=== PATIENT | male | born 1965 | race Caucasian/White ===

== ENCOUNTER 2019-02-17 02:33 | Inpatient (IN) | payer MEDICAID, SELFPAY ==
[2019-02-17] VITALS (9 sets, daily range): BP systolic 124–142; BP diastolic 79–93; PULSE 85–103; RESP 12–18; TEMP 36.4–36.9; O2SAT 94–97; BMI 23.0
[2019-02-17] MEDS: EPINEPHrine HCL INJ 1 MG/ML AMPUL 0.3 MG SUB-Q (03:06)
--- NOTE | 2019-02-17 03:33 | PM.IMHP ---
H&P: HPI History of Present Illness Chief complaint: Direct admit for angioedema Narrative: This is a 54 year old male with known history of asthma and hypertension who presented to our hospital as a direct admission from [facility] secondary to an episode of angioedema tonight. The patient mentions that the last time he had any significant rash was last year when at affected his right upper extremity and started for no apparent reason. At that time nobody could tell him the reason why he had the rash. Approximately 3 years ago he had another episode of a skin eruption when he got stung by a bee and involved his whole back. The patient has been on lisinopril for the past 3-4 years and today he took his usual dose of lisinopril yesterday morning. Tonight around 7:45 p.m. he started to experience swelling of his right upper lip. The swelling worsened to include the right side of his face and his lower lip. The patient also experienced a red itchy raise rash on his abdomen and decided to go to the ER for evaluation. At [facility] the patient was diagnosed with angioedema and was treated with subcu epinephrine 0.3 mg, Zantac 50 mg IV, Solu-Medrol 125 mg IV, and Benadryl 50 mg IV around 10:00 p.m. this evening. Patient's swelling improved slightly but then started to involve the left side of his lip and face. ER provider called our hospital for direct admission. On my encounter with the patient tonight he denies any other significant symptoms. He denies any bug bites or stings of any sort from any type of insects recently. He denies starting any new medications. He does however mention that he took aspirin yesterday for headache. The patient denies any family history of angioedema. He has not had any URI symptoms. Tonight he also denies any syncope, nausea or vomiting, shortness of breath, stridor, tongue swelling, difficulty swallowing, wheezing, chest pain, headache, dizziness, abdominal pain, dysuria, hematuria, or focal neurological symptoms. He has never had involvement of his face before like he has tonight. The patient believes that his lip and facial swelling may have worsened since he was at [facility]. Review of Systems Review of Systems: All systems reviewed & are unremarkable except as noted in HPI and below PMFSH Past Medical History Medical History Asthma (Acute) Hypertension (Acute) Family History Family History Father Anemia Mother Septic shock Hypertension Social History Social History Smoking status: Former smoker Tobacco type: cigarettes Alcohol intake: current Drinks per week: 14 Substance use: never Gender identity (if verbalized by the patient): Male Spiritual care concerns: Yes Agree to blood products: Yes Comments Past surgical history is unremarkable Meds Home Medications and Allergies Allergies Allergy/AdvReac Type Severity Reaction Status Date / Time lisinopril AdvReac Anaphylaxis Verified 02/17/19 03:06 Exam Const: General: cooperative, healthy appearing, no acute distress, alert and awake Nutritional Appearance: well nourished Orientation/consciousness: oriented x3 HENMT: General nose exam: external nose normal Face and sinus: edema (Significant facial edema is noted on the right side, and left-sided) and other (Angioedema++) Mouth: Yes tongue normal, Yes moist mucous membranes and Yes other (Significant perioral edema is noted including the upper and lower lip) Eyes: Pupils: PERRL EOM: EOM intact bilaterally Neck: Neck: supple and no JVD Thyroid: thyroid normal Lymphatic: lymphadenopathy not noted Resp: Effort & Inspection: normal respiratory effort Auscultation: wheezes (Mild bibasilar wheeze++) Cardio: Rate: tachycardic Rhythm: regular rhythm Heart sounds: no murmurs
[2019-02-17] MEDS: ALBUTEROL SULFATE NEB 2.5 MG/0.5 ML INH 5 MG INHALATION (03:58)
[2019-02-17 04:35] LABS: Basophils Percent Auto 0.3 % (0.2-1.2); Eosinophils Absolute Auto 0.1 K/mm3 (0-0.3); Hematocrit 47.7 % (42.0-52.0); Hemoglobin 16.6 g/dL (14.0-18.0); Immature Granulocyte Absolute 0.05 K/mm3 (0.00-0.031); Immature Granulocyte Percent A 0.4 % (0-0.5); Lymphocytes Absolute Auto 0.83 K/mm3 (0.9-3.2); Lymphocytes Percent Auto 6.3 % (18.3-44.2); Mean Corpuscular HGB Conc 34.8 g/dl (32-36); Mean Corpuscular Hemoglobin 32.5 pg (26-34); Mean Corpuscular Volume 93.5 fl (80-100); Mean Platelet Volume 10.3 fl (7.4-10.4); Monocytes Absolute Auto 0.1 K/mm3 (0.1-0.6); Monocytes Percent Auto 0.5 % (2.6-8.5); Neutrophils Percent Auto 91.5 % (45.5-73.1); Platelet Count Result 289 k/mm3 (150-375); White Blood Count 13.1 K/mm3 (4.5-10.0)
[2019-02-17 04:47] LABS: Alanine Aminotransferase 20 U/L (4-50); Albumin Level 4.2 g/dL (3.5-5.1); Alkaline Phosphatase 80 U/L (38-126); Aspartate Amino Transferase 25 U/L (17-59); Bilirubin,Total 0.3 mg/dL (0.2-1.3); Blood Urea Nitrogen 14 mg/dL (9-20); Calcium 9.3 mg/dL (8.4-10.2); Carbon Dioxide 23 mmol/L (22-30); Chloride 102 mmol/L (98-107); Estimated CRCL calculation 103 ml/min; Estimated Glomerular Filt Rate > 60; Glucose 163 mg/dL (75-110); Sodium 138 mmol/L (137-145)
[2019-02-17 04:48] LABS: Magnesium 2.2 mg/dL (1.6-2.3)
[2019-02-17 05:15] LABS: Erythrocyte Sedimentation Rate 11 mm/hr (0-120)
[2019-02-17] MEDS: SODIUM CHLORIDE 0.9% IV 1,000 ML 125 ML IV CONT ×2 (06:18→13:38)
[2019-02-17 09:00] LABS: Add Urine Microscopic? YES; Appearance Urine Clear (Clear); Bilirubin Urine Negative (Negative); Blood Urine Negative (Negative); Color Urine Yellow (Yellow); Glucose Urine UA Negative (Negative); Ketones Urine 1+ mg/dL (Negative); Leukocyte Esterase Ur Negative LEU/UL (Negative); Mucus Urine Rare /lpf; Nitrate Urine Negative (Negative); Protein Urine Negative (Negative); RBC Urine 0-2 /hpf (0-2); Specific Grav Ur 1.019 (1.001-1.035); Urobilinogen Urine Negative mg/dL (<2.0); WBC Urine 0-3
[2019-02-17] MEDS: methylPREDNISolone SOD SUCC 125 MG VIAL 60 MG IV PUSH ×3 (09:51→21:40)
[2019-02-17] MEDS: FAMOTIDINE 20 MG/2 ML VIAL IV PUSH ×2 (09:51→21:40)
--- NOTE | 2019-02-17 12:39 | WPDCNINT ---
Assessment and Plan Assessment and plan (1) Angioedema: Qualifiers: Encounter type: initial encounter Qualified Code(s): T78.3XXA - Angioneurotic edema, initial encounter Code(s): T78.3XXA - Angioneurotic edema, initial encounter Status: Acute Assessment and Plan: angioedema likely related to lisinopril and or aspirin. - Continue Solu-Medrol, famotidine and Benadryl (2) Urticaria: Code(s): L50.9 - Urticaria, unspecified Status: Acute Assessment and Plan: Urticaria has improved - continue above treatment (3) Asthma: Qualifiers: Asthma severity: unspecified severity Asthma persistence: unspecified Asthma complication type: unspecified Qualified Code(s): J45.909 - Unspecified asthma, uncomplicated Code(s): J45.909 - Unspecified asthma, uncomplicated Status: Acute Assessment and Plan: p.r.n. bronchodilators - no wheezing noted (4) Hypertension: Qualifiers: Hypertension type: unspecified Qualified Code(s): I10 - Essential (primary) hypertension Code(s): I10 - Essential (primary) hypertension Status: Acute Assessment and Plan: blood pressures have been stable - hold lisinopril Additional Plan discussed with patient and his and updated them with patient's condition and plan of care. Code status; full code critical care time spent: 34 minutes Consult date: 02/17/19 Time Seen: 07:12 HPI: Errol Chaudhari is a 54 year old male with significant past medical history of asthma and hypertension presented to the outside hospital in [facility] with complains of swelling of his lip and tongue. Patient is on lisinopril for the last 3-4 years. Patient was diagnosed with angioedema and was transferred to [facility] ICU for further management. Patient was started on Solu-Medrol, Benadryl and famotidine. patient seen examined this morning. States his tongue and lipswelling has decreased, his did show me some pictures of his swelling that she took yesterday when they were at the outside hospital. Patient denies any shortness of breath or trouble breathing, denies any issues with swallowing. No drooling. Denies any chest pain, shortness of breath, abdominal pain, nausea, vomiting, lightheadedness with dizziness. Patient states he drinks 2 cans of beers daily. denies any tobacco or illicit drug use. Review of Systems Review of Systems: All systems reviewed & are unremarkable except as noted in HPI and below PMFSH Past Medical History Medical History Asthma (Acute) Hypertension (Acute) Family History Family History Father Anemia Mother Septic shock Hypertension Social History Social History Smoking status: Former smoker Tobacco type: cigarettes Alcohol intake: current Drinks per week: 14 Substance use: never Gender identity (if verbalized by the patient): Male Spiritual care concerns: Yes Agree to blood products: Yes Meds Home Medications and Allergies Home Medications Medication Instructions Recorded Confirmed Type albuterol sulfate [ProAir HFA] 2 puff INHALATION Q6H PRN 02/17/19 02/17/19 History lisinopril 20 mg PO DAILY 02/17/19 02/17/19 History metoprolol tartrate 50 mg PO DAILY 02/17/19 02/17/19 History Allergies Allergy/AdvReac Type Severity Reaction Status Date / Time lisinopril AdvReac Anaphylaxis Verified 02/17/19 03:06 Vital Signs Vital Signs - 24 hr 02/17/19 03:58 02/17/19 04:00 02/17/19 04:07 Temperature 36.9 C Pulse Rate 94 101 H 96 Respiratory Rate 16 18 16 Blood Pressure 139/88 Pulse Oximetry 96 02/17/19 06:00 02/17/19 08:00 02/17/19 12:00 Temperature 36.4 C L 36.4 C L Pulse Rate 97 85 99 Respiratory Rate 18 16 12
--- NOTE | 2019-02-17 15:46 | PC.NURSE ---
This patient, Errol Chaudhari, was received from [ICU/5 ] on 02/17/19 at 1541. Personal belongings list checked and signed. Patient/family oriented to unit policies and routines.
--- NOTE | 2019-02-17 15:56 | PC.NURSE ---
This patient, Errol Chaudhari, was transferred to [257 ] on 02/17/19 at 1540. Personal belongings sent with patient. Belongings list checked and signed with receiving [ ]. Report given to SALVATORE Monroe. Appropriate documentation sent with patient.
--- NOTE | 2019-02-17 17:17 | PM.IMPN ---
Progress Note: A&P Assessment and Plan (1) Angioedema: Qualifiers: Encounter type: initial encounter Qualified Code(s): T78.3XXA - Angioneurotic edema, initial encounter Code(s): T78.3XXA - Angioneurotic edema, initial encounter Status: Acute Assessment and Plan: Patient is a 54-year-old male past medical history hypertension and had been taking lisinopril for last several years he initially went to emergency department the [facility] with complaint of swelling of the lips and face and difficulty with breathing patient was given epinephrine Solu-Medrol Benadryl and Pepcid however his symptoms not improving he was transferred to the hospital and admitted to ICU for observation this morning patient's symptoms have improved he denies any swelling able to swallow denies any cough shortness of breath wheezing fever or chills patient is now clinically stable will continue Solu-Medrol and updraft Pepcid and Benadryl, if clinically stable tomorrow will discharge the patient on tapering dose of prednisone (2) Asthma: Qualifiers: Asthma severity: unspecified severity Asthma persistence: unspecified Asthma complication type: unspecified Qualified Code(s): J45.909 - Unspecified asthma, uncomplicated Code(s): J45.909 - Unspecified asthma, uncomplicated Status: Acute Assessment and Plan: Patient now clinically stable will continue plan above (3) Hypertension: Qualifiers: Hypertension type: unspecified Qualified Code(s): I10 - Essential (primary) hypertension Code(s): I10 - Essential (primary) hypertension Status: Acute Assessment and Plan: Will hold lisinopril will monitor Subjective Interval history: Patient is a 54-year-old male past medical history hypertension and had been taking lisinopril for last several years he initially went to emergency department the [facility] with complaint of swelling of the lips and face and difficulty with breathing patient was given epinephrine Solu-Medrol Benadryl and Pepcid however his symptoms not improving he was transferred to the hospital and admitted to ICU for observation this morning patient's symptoms have improved he denies any swelling able to swallow denies any cough shortness of breath wheezing fever or chills Review of Systems Constitutional: Constitutional: Reports as per HPI Eyes: Eyes: Reports as per HPI ENT: Reports as per HPI Cardiovascular: Cardiovascular: Reports as per HPI Respiratory: Respiratory: Reports as per HPI Gastrointestinal: Gastrointestinal: Reports as per HPI Musculoskeletal: Musculoskeletal: Reports as per HPI Integumentary/Breasts: Skin/Breast: Reports as per HPI Neurologic: Reports as per HPI Psychiatric: Psychiatric: Reports as per HPI Exam Const: General: comfortable and no acute distress HENMT: General nose exam: nares normal Mouth: Yes moist mucous membranes Other: The face is symmetrical there is no swelling or erythema, posterior pharynx there is no erythema or swelling Eyes: General: appearance normal, both eyes and all related structures Sclera: sclerae normal Neck: Neck: supple Resp: Effort & Inspection: normal respiratory effort Auscultation: clear to auscultation bilaterally Other: No wheezing Cardio: Rate: regular rate Rhythm: regular rhythm Other: No gallop or murmur GI: Palpation (GI): Yes soft Auscultation: normal bowel sounds Skin: General skin exam: normal color and no rashes or lesions noted Extrem: General: normal to inspection Psych: Affect: anxious affect Objective Data Vital Signs Vital Signs: Vital Signs - 24 hr 02/17/19 03:58 02/17/19 04:00 02/17/19 04:07 Temperature 98.4 F Pulse Rate 94 101 H 96 Respiratory Rate 16 18 16 Blood Pressure 139/88 Pulse Oximetry 96 02/17/19 06:00 02/17/19 08:00 02/17/19 12:00 Temperature 97.5 F L 97.5 F L Pulse Rate 97 85 95 Respir
[2019-02-17] MEDS: ACETAMINOPHEN 325 MG TABLET 650 MG PO (18:56)
[2019-02-18] VITALS: PULSE 88
[2019-02-18 02:00] VITALS: BP 138/79; PULSE 93; RESP 16; TEMP 36.3; O2SAT 93
[2019-02-18 04:00] VITALS: PULSE 93
[2019-02-18] MEDS: methylPREDNISolone SOD SUCC 125 MG VIAL 60 MG IV PUSH ×2 (05:18→09:05)
[2019-02-18 06:00] VITALS: BP 135/78; PULSE 87; RESP 16; TEMP 36.2; O2SAT 93
[2019-02-18 08:00] VITALS: PULSE 94
[2019-02-18] MEDS: FAMOTIDINE 20 MG/2 ML VIAL IV PUSH (09:04)
[2019-02-18 10:00] VITALS: BP 147/81; PULSE 109; RESP 16; TEMP 36.3; O2SAT 95
[2019-02-18 22:05] LABS: C1 Esterase Inhibitor 94 % (>=68)
--- NOTE | 2019-03-30 12:25 | PM.DS ---
DS: Diagnosis Admitting Diagnosis Admitting Diagnosis: Angioneurotic edema, initial encounter Discharge Diagnosis (1) Angioedema: Qualifiers: Encounter type: initial encounter Qualified Code(s): T78.3XXA - Angioneurotic edema, initial encounter Code(s): T78.3XXA - Angioneurotic edema, initial encounter Status: Acute Assessment and Plan: Patient is a 54-year-old male past medical history hypertension and had been taking lisinopril for last several years he initially went to emergency department the [facility] with complaint of swelling of the lips and face and difficulty with breathing patient was given epinephrine Solu-Medrol Benadryl and Pepcid however his symptoms not improving he was transferred to the hospital and admitted to ICU for observation this morning patient's symptoms have improved he denies any swelling able to swallow denies any cough shortness of breath wheezing fever or chills patient is now clinically stable will continue Solu-Medrol and updraft Pepcid and Benadryl, if clinically stable tomorrow will discharge the patient on tapering dose of prednisone (2) Asthma: Qualifiers: Asthma severity: unspecified severity Asthma persistence: unspecified Asthma complication type: unspecified Qualified Code(s): J45.909 - Unspecified asthma, uncomplicated Code(s): J45.909 - Unspecified asthma, uncomplicated Status: Acute Assessment and Plan: Patient now clinically stable will continue plan above (3) Hypertension: Qualifiers: Hypertension type: unspecified Qualified Code(s): I10 - Essential (primary) hypertension Code(s): I10 - Essential (primary) hypertension Status: Acute Assessment and Plan: Will hold lisinopril will monitor DS: Summary Hospital Course Reason for hospitalization: This is a 54 year old male with known history of asthma and hypertension who presented to our hospital as a direct admission from [facility] secondary to an episode of angioedema tonight. The patient mentions that the last time he had any significant rash was last year when at affected his right upper extremity and started for no apparent reason. At that time nobody could tell him the reason why he had the rash. Approximately 3 years ago he had another episode of a skin eruption when he got stung by a bee and involved his whole back. The patient has been on lisinopril for the past 3-4 years and today he took his usual dose of lisinopril yesterday morning. Tonight around 7:45 p.m. he started to experience swelling of his right upper lip. The swelling worsened to include the right side of his face and his lower lip. The patient also experienced a red itchy raise rash on his abdomen and decided to go to the ER for evaluation. At [facility] the patient was diagnosed with angioedema and was treated with subcu epinephrine 0.3 mg, Zantac 50 mg IV, Solu-Medrol 125 mg IV, and Benadryl 50 mg IV around 10:00 p.m. this evening. Patient's swelling improved slightly but then started to involve the left side of his lip and face. ER provider called our hospital for direct admission. On my encounter with the patient kady he denies any other significant symptoms. He denies any bug bites or stings of any sort from any type of insects recently. He denies starting any new medications. He does however mention that he took aspirin yesterday for headache. The patient denies any family history of angioedema. He has not had any URI symptoms. [facility] he also denies any syncope, nausea or vomiting, shortness of breath, stridor, tongue swelling, difficulty swallowing, wheezing, chest pain, headache, dizziness, abdominal pain, dysuria, hematuria, or focal neurological symptoms. He has never had involvement of his face before like he has [facility]. The patient believes that his lip and facial swelling may have worsened since he was at [facility]. [facility]
== END 2019-02-18 11:40 | disposition home or self-care (01) | DRG 811 ==
LOC: ANHICU 10:06 → ANH2MED 02-18 10:03 → ANHICU 02-23 15:04
PROVIDERS: Admitting Provider Family Medicine; Referring Provider Family Medicine; Visit Provider Family Medicine
DX: T78.3XXA Angioneurotic edema, initial encounter (principal); J45.909 Unspecified asthma, uncomplicated; I10 Essential (primary) hypertension
CPT/HCPCS: 36415; 80053; 81001; 83735; 85025; 85652; 86160; 87081; 94640; A9270; J0171; J2930; J7030